=== PATIENT | male | born 1970 | race Caucasian/White ===

== ENCOUNTER 2021-11-20 10:39 | Day surgery (SDC) | payer BC ==
[~2021-11-20] VITALS: Ht 162.6 cm; Wt 77.1 kg
[2021-11-20] MEDS ORDERED: fentaNYL citrate 0.05 MG/ML VIAL ONE (15:08)
[2021-11-20] MEDS ORDERED: PROPOFOL 200 MG/20 ML VIAL IV ONE (15:09)
[2021-11-20] MEDS ORDERED: SEVOFLURANE 250 ML BTL INH ONE (15:20)
[2021-11-20] MEDS ORDERED: LIDOCAINE 1% 500 MG/50 ML VIAL ONE (15:34)
[2021-11-20] MEDS ORDERED: BUPIVACAINE-MPF 0.25% 30 ML VIAL INJ ONE (15:34)
[2021-11-20] MEDS ORDERED: MEPERIDINE 50 MG/ML SYR ONE (16:49)
[2021-11-20] MEDS ORDERED: ONDANSETRON 4 MG/2 ML VIAL ONE (16:59)
[2021-11-20] MEDS ORDERED: DEXAMETHASONE 4 MG/ML VIAL ONE (16:59)
[2021-11-20] MEDS: MEPERIDINE 25 MG/ML SYR IVP PRN ×2 (18:10→18:20)
[2021-11-20] MEDS ORDERED: MEPERIDINE 25 MG/ML SYR ONE (18:11)
[2021-11-20] MEDS ORDERED: LACTATED RINGERS 1,000 ML IV SCH (18:15)
[2021-11-20] MEDS ORDERED: diphenhydrAMINE 50 MG/ML VIAL IVP PRN (18:15)
[2021-11-20] MEDS ORDERED: ONDANSETRON 4 MG/2 ML VIAL IVP PRN (18:15)
[2021-11-20] MEDS: HYDROmorphone 1 MG/ML AMP IVP PRN ×2 (18:25→18:35)
[2021-11-20] MEDS ORDERED: HYDROmorphone PFS 2 MG/ML SYR ONE (18:35)
== END 2021-11-20 19:25 | disposition home or self-care (01) ==
LOC: MOR 10:39 → MMU 10:40 → MOR 19:25
PROVIDERS: ATTEND Podiatrist Foot & Ankle Surgery
DX: M20.42 Other hammer toe(s) (acquired), left foot (principal); M77.42 Metatarsalgia, left foot; M77.41 Metatarsalgia, right foot; M21.612 Bunion of left foot; M21.611 Bunion of right foot; M20.41 Other hammer toe(s) (acquired), right foot; Z79.899 Other long term (current) drug therapy
CPT/HCPCS: 28285; 28296; 28299; 73630; 87426; 93005; C1713; J0690; J1100; J1170; J2001; J2175; J2405; J2704; J3010; J3490; J7060; Q0092